=== PATIENT | male | born 1965 | race Caucasian/White ===

== ENCOUNTER 2017-05-11 17:19 | Emergency (ER) | payer BC, MEDICAID ==
--- NOTE | 2017-05-11 19:20 | EDM.PDOC ---
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: Other Medication(s) (glucose syrup, D50 and IV fluids via EMS) - Related Data Allergies Allergy/AdvReac Type Severity Reaction Status Date / Time No Known Allergies Allergy Verified 05/11/17 17:22 Home Meds: Home Meds Aspirin [Adult Low Dose Aspirin EC] 81 mg PO DAILY 10/05/16 [History] Insulin Aspart [NovoLOG] 2 units SUBCUT ASDIRECTED 10/05/16 [History] Insulin Glarg,Human.Rec.Analog [Lantus] 30 units SUBCUT ASDIRECTED 10/05/16 [ History] atorvaSTATin [Lipitor] 20 mg PO BEDTIME 10/05/16 [History] Past Medical History Musculoskeletal History: Reports: Back Pain, Chronic Endocrine/Metabolic History: Reports: Diabetes, Type I Other Endocrine/Metabolic History: 25 year hx with insulin use Social & Family History - Family History Family Medical History: Noncontributory - Tobacco Use Smoking Status *Q: Never Smoker Second Hand Smoke Exposure: No - Caffeine Use Caffeine Use: Reports: Coffee Caffeine Use Comment: caily - Recreational Drug Use Recreational Drug Use: No - Living Situation & Occupation Living situation: Reports: , with Family Occupation: Employed ED ROS GENERAL - Review of Systems Review Of Systems: See Below Constitutional: Reports: No Symptoms, Weight Gain Respiratory: Reports: No Symptoms Cardiovascular: Reports: No Symptoms Endocrine: Reports: No Symptoms GI/Abdominal: Reports: No Symptoms : Reports: No Symptoms Musculoskeletal: Reports: No Symptoms Skin: Reports: No Symptoms Neurological: Reports: No Symptoms Psychiatric: Reports: No Symptoms Hematologic/Lymphatic: Reports: No Symptoms Immunologic: Reports: No Symptoms ED EXAM GENERAL NO PERIP PULSE - Physical Exam Exam: See Below Exam Limited By: No Limitations General Appearance: Alert, WD/WN, No Apparent Distress Eye Exam: Bilateral Eye: Normal Inspection Ears: Normal External Exam, Hearing Grossly Normal Nose: Normal Inspection, Normal Mucosa, No Blood Throat/Mouth: Normal Inspection, Normal Lips, Normal Teeth, Normal Gums, Normal Oropharynx, Normal Voice, No Airway Compromise Head: Atraumatic, Normocephalic Neck: Normal Inspection, Supple, Non-Tender, Full Range of Motion Respiratory/Chest: No Respiratory Distress, Lungs Clear, Normal Breath Sounds, No Accessory Muscle Use, Chest Non-Tender Cardiovascular: Normal Peripheral Pulses, Regular Rate, Rhythm, No Edema, No Murmur GI/Abdominal: Normal Bowel Sounds, Soft, Non-Tender (Male) Exam: Deferred Rectal (Males) Exam: Deferred Back Exam: Normal Inspection, Full Range of Motion, NT Extremities: Normal Inspection, Normal Range of Motion, Non-Tender, No Pedal Edema, Normal Capillary Refill Neurological: Alert, Oriented, CN II-XII Intact, Normal Cognition, No Motor/ Sensory Deficits Psychiatric: Normal Affect, Normal Mood Skin Exam: Warm, Dry, Intact, Normal Color, No Rash Lymphatic: No Adenopathy Course - Vital Signs Last Recorded V/S: Last Vital Signs Temp 35.9 C 05/11/17 17:24 Pulse 68 05/11/17 19:56 Resp 15 05/11/17 19:56 BP 131/68 05/11/17 19:56 Pulse Ox 95 05/11/17 19:56 - Orders/Labs/Meds Labs: Laboratory Tests 05/11/17 05/11/17 Range/Units 19:21 19:21 WBC 17.7 H (4.5-11.0) K/uL RBC 4.99 (4.30-5.90) M/uL Hgb 14.6 (12.0-15.0) g/dL Hct 43.3 (40.0-54.0) % MCV 87 (80-98) fL MCH 29 (27-31) pg MCHC 34 (32-36) % Plt Count 237 (150-400) K/uL Neut % (Auto) 93 H (36-66) % Lymph % (Auto) 5 L (24-44) % [place] % (Auto) 3 (2-6) % Eos % (Auto) 0 L (2-4) % Baso % (Auto) 0 (0-1) % Sodium 139 L (140-148) mmol/L Potassium 4.3 (3.6-5.2) mmol/L Chloride 105 (100-108) mmol/L Carbon Dioxide 30 (21-32) mmol/L Anion Gap 8.3 (5.0-14.0) mmol/L BUN 17 (7-18) mg/dL Creatinine 0.9 (0.8-1.3) mg/dL Est Cr Clr Drug Dosing 105.38 mL/min Estimated GFR (MDRD) > 60 (>60) Glucose 276 H (74-106) mg/dL Calcium 8.2 L (8.5-10.1) mg/dL Total Bilirubin 0.3 (0.2-1.0) mg/dL AST 18 (15-37) U/L ALT 31 (12-78) U/L Alkaline Phosphatase 87 (46-116) U/L Total Protein 6.5 (6.4-8.2) g/dL Albumin 3.6 (3.4-5.0) g/dL Globulin 2.9 (2.3-3.5) g/dL Albumin/Globulin Ratio 1.2 (1.2-2.2) - Re-Assessments/Exams Free Text/Narrative Re-Assessment/Exam: 05/11/17 20:15 Mr. Land received one liter of fluid and D50 prior to arrival. since being in ER , blood glucose has been 233 and 246. no symptoms reported. labs are reviewed with and Mrs. Land. will discharge to home with Glucose tabs, liquid and Glucagon emergency Kit as directed. will follow up with [facility] on 05/23/2017. or sooner as indicated. Departure - Departure Time of Disposition: 20:17 Disposition: Home, Self-Care 01 Condition: Good Clinical Impression: Hypoglycemia - Discharge Information Referrals: PCP,None [Primary Care Provider] - Forms: ED Department Discharge Care Plan Goals: Hypoglycemic reaction at home -labs reviewed -scripts written for Glucose tab, gel and Glucagon Kit -follow up with [facility] on 05/23/2017 -follow with Primary Care sooner if has any concerns Return to Clinic or ER for any fever, chills, nausea, vomiting, diarrhea, rash or not improved. - Problem List & Annotations (1) Hypoglycemia SNOMED Code(s): 799917964 Code(s): E16.2 - HYPOGLYCEMIA, UNSPECIFIED Status: Acute Priority: Medium Current Visit: Yes - Problem List Review Problem List Initiated/Reviewed/Updated: Yes - Assessment/Plan Plan: Hypoglycemic reaction at home -labs reviewed -scripts written for Glucose tab, gel and Glucagon Kit -follow up with [facility] on 05/23/2017 -follow with Primary Care sooner if has any concerns Return to Clinic or ER for any fever, chills, nausea, vomiting, diarrhea, rash or not improved.
== END 2017-05-11 20:36 | disposition home or self-care (01) ==
LOC: JP.ED 17:19
DX: E10.649 Type 1 diabetes mellitus with hypoglycemia without coma (principal); Z79.4 Long term (current) use of insulin; Z79.82 Long term (current) use of aspirin
CPT/HCPCS: 36415; 80053; 85025; 99283; 99284

== ENCOUNTER 2019-02-12 17:54 | Emergency (ER) | payer BC, MEDICAID, OTHER ==
[2019-02-12] MEDS ORDERED: Sodium Chloride 0.9% 10 ML Syringe FLUSH PRN ×2 (18:17→19:18)
[2019-02-12] MEDS ORDERED: Ondansetron 4 MG/2 ML SDV IVPUSH ONE (18:18)
[2019-02-12] MEDS ORDERED: Alum Hydrox/Mag Hydrox/Simeth 15 ML, Lidocaine 2% 15 ML PO ONE ×2 (18:18)
--- NOTE | 2019-02-12 18:22 | EDM.PDOC ---
ED HPI GENERAL MEDICAL PROBLEM - General Chief Complaint: Abdominal Pain Stated Complaint: UPPER ABD PAIN Time Seen by Provider: 02/12/19 18:14 Source of Information: Reports: Patient, Family, RN Notes Reviewed History Limitations: Reports: No Limitations - History of Present Illness INITIAL COMMENTS - FREE TEXT/NARRATIVE: 53-year-old gentleman presents emergency department today complaint of abdominal pain, he states the pain started early this afternoon right after eating lunch has progressively gotten he does feel short of breath no chest pain he is diaphoretic no heart history Middle Abdomen Pain Score (Numeric/FACES): 8 - Related Data Allergies Allergy/AdvReac Type Severity Reaction Status Date / Time No Known Allergies Allergy Verified 02/12/19 18:05 Home Meds: Home Meds Aspirin [Adult Low Dose Aspirin EC] 81 mg PO DAILY 10/05/16 [History] Insulin Aspart [NovoLOG] 2 units SUBCUT ASDIRECTED 10/05/16 [History] Insulin Glarg,Human.Rec.Analog [Lantus] 25 units SUBCUT ASDIRECTED 10/05/16 [ History] Past Medical History HEENT History: Reports: Impaired Vision Musculoskeletal History: Reports: Back Pain, Chronic Endocrine/Metabolic History: Reports: Diabetes, Type I Other Endocrine/Metabolic History: 25 year hx with insulin use - Past Surgical History Head Surgeries/Procedures: Reports: None HEENT Surgical History: Reports: None Endocrine Surgical History: Reports: None Musculoskeletal Surgical History: Reports: None Dermatological Surgical History: Reports: None Social & Family History - Family History Family Medical History: Noncontributory - Tobacco Use Smoking Status *Q: Never Smoker Second Hand Smoke Exposure: No - Caffeine Use Caffeine Use: Reports: Coffee, Tea Caffeine Use Comment: caily - Recreational Drug Use Recreational Drug Use: No - Living Situation & Occupation Living situation: Reports: , with Family Occupation: Employed ED ROS GENERAL - Review of Systems Review Of Systems: See Below Constitutional: Reports: Diaphoresis HEENT: Reports: No Symptoms Respiratory: Reports: No Symptoms Cardiovascular: Reports: No Symptoms GI/Abdominal: Reports: Abdominal Pain, Flatus, Nausea. Denies: No Symptoms, Vomiting : Reports: No Symptoms Musculoskeletal: Reports: No Symptoms Skin: Reports: No Symptoms Neurological: Reports: No Symptoms ED EXAM, GI/ABD - Physical Exam Exam: See Below Exam Limited By: No Limitations General Appearance: Alert, WD/WN, No Apparent Distress Head: Atraumatic, Normocephalic Neck: Normal Inspection, Supple, Non-Tender, Full Range of Motion Respiratory/Chest: No Respiratory Distress, Lungs Clear, Normal Breath Sounds, No Accessory Muscle Use, Chest Non-Tender Cardiovascular: Regular Rate, Rhythm, No Murmur GI/Abdominal Exam: Normal Bowel Sounds, Soft, Non-Tender, No Distention Course - Vital Signs Last Recorded V/S: Last Vital Signs Temp 95.8 F 02/12/19 18:07 Pulse 72 02/12/19 20:24 Resp 16 02/12/19 18:07 BP 157/85 H 02/12/19 20:24 Pulse Ox 98 02/12/19 20:24 - Orders/Labs/Meds Orders: Active Orders 24 hr Category Date Time Status Cardiac Monitoring [RC] .As Directed Care 02/12/19 18:17 Active EKG Documentation Completion [RC] ASDIRECTED Care 02/12/19 18:18 Active Peripheral IV Care [RC] . DIRECTED Care 02/12/19 18:18 Active Iopamidol [Isovue-300 (61%)] Med 02/12/19 19:30 Active 142 ml IV . DIRECTED Lactated Ringers [Ringers, Lactated] 1,000 ml Med 02/12/19 18:30 Active IV ASDIRECTED Sodium Chloride 0.9% [Normal Saline] 80 ml Med 02/12/19 19:30 Active IV ASDIRECTED Sodium Chloride 0.9% [Saline Flush] Med 02/12/19 18:17 Active 10 ml FLUSH ASDIRECTED PRN Sodium Chloride 0.9% [Saline Flush] Med 02/12/19 19:18 Active 10 ml FLUSH ASDIRECTED PRN fentaNYL [Sublimaze] Med 02/12/19 21:40 Once 100 mcg IVPUSH ONETIME ONE Peripheral IV Insertion Adult [OM.PC] Stat Oth 02/12/19 18:17 Ordered EKG 12 Lead [EK] Stat Ther 02/12/19 18:18 Ordered Medication Orders Fentanyl (Sublimaze) 100 mcg IVPUSH ONETIME ONE Stop: 02/12/19 21:41 Lactated Ringer's (Ringers, Lactated) 1,000 mls @ 999 mls/hr IV ASDIRECTED [facility] Last Admin: 02/12/19 18:56 Dose: 999 mls/hr Sodium Chloride (Normal Saline) 80 mls @ 3 mls/sec IV ASDIRECTED NATA Last Admin: 02/12/19 19:35 Dose: 3 mls/sec Iopamidol (Isovue-300 (61%)) 142 ml IV . DIRECTED NATA Last Admin: 02/12/19 19:37 Dose: 142 ml Sodium Chloride (Saline Flush) 10 ml FLUSH ASDIRECTED PRN PRN Reason: Keep Vein Open Last Admin: 02/12/19 18:57 Dose: 10 ml Sodium Chloride (Saline Flush) 10 ml FLUSH ASDIRECTED PRN PRN Reason: Keep Vein Open Last Admin: 02/12/19 19:35 Dose: 10 ml Labs: Laboratory Tests 02/12/19 02/12/19 02/12/19 Range/Units 18:24 18:24 18:24 WBC 14.5 H (4.5-11.0) K/uL RBC 5.40 (4.30-5.90) M/uL Hgb 15.6 H (12.0-15.0) g/dL Hct 46.5 (40.0-54.0) % MCV 86 (80-98) fL MCH 29 (27-31) pg MCHC 34 (32-36) % Plt Count 255 (150-400) K/uL Neut % (Auto) 88 H (36-66) % Lymph % (Auto) 8 L (24-44) % [place] % (Auto) 4 (2-6) % Eos % (Auto) 0 L (2-4) % Baso % (Auto) 0 (0-1) % Sodium 142 (140-148) mmol/L Potassium 4.3 (3.6-5.2) mmol/L Chloride 105 (100-108) mmol/L Carbon Dioxide 28 (21-32) mmol/L Anion Gap 9.2 (5.0-14.0) mmol/L BUN 17 (7-18) mg/dL Creatinine 1.0 (0.8-1.3) mg/dL Est Cr Clr Drug Dosing 103.68 mL/min Estimated GFR (MDRD) > 60 (>60) Glucose 249 H (74-106) mg/dL Lactic Acid 2.0 (0.4-2.0) mmol/L Calcium 9.0 (8.5-10.1) mg/dL Total Bilirubin 0.4 (0.2-1.0) mg/dL AST 10 L (15-37) U/L ALT 33 (12-78) U/L Alkaline Phosphatase 92 (46-116) U/L Troponin I < 0.017 (0.000-0.056) ng/mL Total Protein 7.2 (6.4-8.2) g/dL Albumin 3.8 (3.4-5.0) g/dL Globulin 3.4 (2.3-3.5) g/dL Albumin/Globulin Ratio 1.1 L (1.2-2.2) Lipase 82 (73-393) U/L Urine Color Urine Appearance Urine pH (4.5-8.0) Ur Specific [place] (1.008-1.030) Urine Protein (NEGATIVE) mg/dL Urine Glucose (UA) (NEGATIVE) mg/dL Urine Ketones (NEGATIVE) mg/dL Urine Occult Blood (NEGATIVE) Urine Nitrite (NEGAITVE) Urine Bilirubin (NEGATIVE) Urine Urobilinogen (NORMAL) mg/dL Ur Leukocyte Esterase (NEGATIVE) Urine RBC (0-5) Urine WBC (0-5) Ur Epithelial Cells Amorphous Sediment Urine Bacteria Urine Mucus 02/12/19 Range/Units 19:44 WBC (4.5-11.0) K/uL RBC (4.30-5.90) M/uL Hgb (12.0-15.0) g/dL Hct (40.0-54.0) % MCV (80-98) fL MCH (27-31) pg MCHC (32-36) % Plt Count (150-400) K/uL Neut % (Auto) (36-66) % Lymph % (Auto) (24-44) % [place] % (Auto) (2-6) % Eos % (Auto) (2-4) % Baso % (Auto) (0-1) % Sodium (140-148) mmol/L Potassium (3.6-5.2) mmol/L Chloride (100-108) mmol/L Carbon Dioxide (21-32) mmol/L Anion Gap (5.0-14.0) mmol/L BUN (7-18) mg/dL Creatinine (0.8-1.3) mg/dL Est Cr Clr Drug Dosing mL/min Estimated GFR (MDRD) (>60) Glucose (74-106) mg/dL Lactic Acid (0.4-2.0) mmol/L Calcium (8.5-10.1) mg/dL Total Bilirubin (0.2-1.0) mg/dL AST (15-37) U/L ALT (12-78) U/L Alkaline Phosphatase (46-116) U/L Troponin I (0.000-0.056) ng/mL Total Protein (6.4-8.2) g/dL Albumin (3.4-5.0) g/dL Globulin (2.3-3.5) g/dL Albumin/Globulin Ratio (1.2-2.2) Lipase (73-393) U/L Urine Color Yellow Urine Appearance Clear Urine pH 8.0 (4.5-8.0) Ur Specific [place] 1.010 (1.008-1.030) Urine Protein Trace (NEGATIVE) mg/dL Urine Glucose (UA) >=1000 H (NEGATIVE) mg/dL Urine Ketones 50 H (NEGATIVE) mg/dL Urine Occult Blood Negative (NEGATIVE) Urine Nitrite Negative (NEGAITVE) Urine Bilirubin Negative (NEGATIVE) Urine Urobilinogen Normal (NORMAL) mg/dL Ur Leukocyte Esterase Negative (NEGATIVE) Urine RBC 0-5 (0-5) Urine WBC 0-5 (0-5) Ur Epithelial Cells Rare Amorphous Sediment Rare Urine Bacteria Not seen Urine Mucus Rare Meds: Medications Generic Name Dose Route Start Last Admin Trade Name Freq PRN Reason Stop Dose Admin Fentanyl 100 mcg 02/12/19 21:40 Sublimaze IVPUSH 02/12/19 21:41 ONETIME ONE Lactated Ringer's 1,000 mls @ 999 mls/hr 02/12/19 18:30 02/12/19 18:56 Ringers, Lactated IV 999 mls/hr ASDIRECTED NATA Administration Sodium Chloride 80 mls @ 3 mls/sec 02/12/19 19:30 02/12/19 19:35 Normal Saline IV 3 mls/sec ASDIRECTED NATA Administration Iopamidol 142 ml 02/12/19 19:30 02/12/19 19:37 Isovue-300 (61%) IV 142 ml . DIRECTED NATA Administration Sodium Chloride 10 ml 02/12/19 18:17 02/12/19 18:57 Saline Flush FLUSH 10 ml ASDIRECTED PRN Administration Keep Vein Open Sodium Chloride 10 ml 02/12/19 19:18 02/12/19 19:35 Saline Flush FLUSH 10 ml ASDIRECTED PRN Administration Keep Vein Open Discontinued Medications Generic Name Dose Route Start Last Admin Trade Name Freq PRN Reason Stop Dose Admin Al Hydroxide/Mg Hydroxide 15 0 ml 02/12/19 18:18 02/12/19 18:49 ml/ Lidocaine HCl 15 ml PO 02/12/19 18:19 15 ml ONETIME ONE Administration Fentanyl 50 mcg 02/12/19 19:13 02/12/19 19:20 Sublimaze IVPUSH 02/12/19 19:14 50 mcg ONETIME ONE Administration Ondansetron HCl 4 mg 02/12/19 18:18 02/12/19 18:57 Zofran IVPUSH 02/12/19 18:19 4 mg ONETIME ONE Administration Departure - Departure Time of Disposition: 21:45 Disposition: Home, Self-Care 01 Condition: Fair Clinical Impression: Abdominal pain Qualifiers: Abdominal location: epigastric Qualified Code(s): R10.13 - Epigastric pain - Discharge Information Referrals: Terence Montana ELECTRICAL REPAIRER [Primary Care Provider] - Forms: ED Department Discharge Additional Instructions: Use the hydrocodone as needed for pain control, use Zofran as needed for nausea and vomiting symptoms, the outpatient department will call you for an appointment time plan for HIDA scan on Saturday the clinical call you for an appointment time with Dr. May from Gen. surgery for appointment on Saturday, call or return to the emergency department worsening of symptoms - My Orders Last 24 Hours: My Active Orders 02/12/19 18:17 Cardiac Monitoring [RC] .As Directed Sodium Chloride 0.9% [Saline Flush] 10 ml FLUSH ASDIRECTED PRN Peripheral IV Insertion Adult [OM.PC] Stat 02/12/19 18:18 EKG Documentation Completion [RC] ASDIRECTED Peripheral IV Care [RC] . DIRECTED EKG 12 Lead [EK] Stat 02/12/19 18:30 Lactated Ringers [Ringers, Lactated] 1,000 ml IV ASDIRECTED 02/12/19 19:18 Sodium Chloride 0.9% [Saline Flush] 10 ml FLUSH ASDIRECTED PRN 02/12/19 19:30 Iopamidol [Isovue-300 (61%)] 142 ml IV . DIRECTED Sodium Chloride 0.9% [Normal Saline] 80 ml IV ASDIRECTED 02/12/19 21:40 fentaNYL [Sublimaze] 100 mcg IVPUSH ONETIME ONE - Assessment/Plan Last 24 Hours: My Active Orders 02/12/19 18:17 Cardiac Monitoring [RC] .As Directed Sodium Chloride 0.9% [Saline Flush] 10 ml FLUSH ASDIRECTED PRN Peripheral IV Insertion Adult [OM.PC] Stat 02/12/19 18:18 EKG Documentation Completion [RC] ASDIRECTED Peripheral IV Care [RC] . DIRECTED EKG 12 Lead [EK] Stat 02/12/19 18:30 Lactated Ringers [Ringers, Lactated] 1,000 ml IV ASDIRECTED 02/12/19 19:18 Sodium Chloride 0.9% [Saline Flush] 10 ml FLUSH ASDIRECTED PRN 02/12/19 19:30 Iopamidol [Isovue-300 (61%)] 142 ml IV . DIRECTED Sodium Chloride 0.9% [Normal Saline] 80 ml IV ASDIRECTED 02/12/19 21:40 fentaNYL [Sublimaze] 100 mcg IVPUSH ONETIME ONE Plan: Assessment Acuity = acute Site and laterality = epigastric abdominal pain Etiology = unknown suspicious for gallbladder dysfunction Manifestations = nausea Location of injury = Home Lab values = WBC elevated 14.5 consistent leukocytosis, CMP unremarkable troponin is negative, urinalysis negative CT scan and ultrasound showed no acute process other than multiple gallstones consistent with cholelithiasis with no evidence of cholecystitis Plan Called discussed case with Dr. May general surgery at 20:40 recommended HIDA scan and follow-up with him in clinic on Saturday prescription written for hydrocodone 5/325 one tab by mouth 4 hours when necessary total #30 as well as Zofran 4 mg ODT 1 tab by mouth 3 times a day when necessary total #10 This note was dictated using Ping4 voice recognition software please call with any questions on syntax or grammar.
[2019-02-12] MEDS ORDERED: Lactated Ringers 1,000 ML IV SCH (18:30)
[2019-02-12] MEDS ORDERED: fentaNYL 100 MCG/2 ML SDV IVPUSH ONE ×2 (19:13→21:40)
[2019-02-12] MEDS ORDERED: Iopamidol 612 MG/ML 150 ML Bottle IV SCH (19:30)
[2019-02-12] MEDS ORDERED: Sodium Chloride 0.9% 80 ML IV SCH (19:30)
--- NOTE | 2019-02-12 20:10 | CRLCT ---
INDICATION: Upper abdominal pain TECHNIQUE: CT Abdomen and pelvis with i.v. contrast. Coronal and sagittal reformats were obtained. CONTRAST: 142 mL Isovue 300 COMPARISON: None FINDINGS: Lower chest: There is a 12 mm nodule in the anterior left lower lobe. Liver: Unremarkable. Spleen: Unremarkable. Pancreas: Unremarkable. Gallbladder: Several punctate gallstones are seen. Kidney: Malrotation of both kidneys present which is a normal variant. The kidney parenchyma is normal in enhancement. Adrenal: Unremarkable. Bowel: Prominence of all bowel loops are seen in the left upper quadrant with no transition point, likely due to peristalsis. The appendix is normal in appearance and size. Vascular: Unremarkable. Lymph: Unremarkable. Peritoneum: Unremarkable. No pneumoperitoneum is seen. No significant ascites is noted. Pelvis: Unremarkable. Soft tissue: Unremarkable. Bone: Unremarkable for age. IMPRESSION: 1. There is a 12 mm nodule in the anterior left lower lobe. Further evaluation with follow-up chest CT in 3 months, biopsy or PET scan is recommended to exclude a primary pulmonary neoplasm in accordance with the 2017 Revised Fleischner Society Recommendations. 2. No identified etiology for the abdominal pain seen. A copy of this report was faxed to Officer at approximately 8:09 PM. Dictated by Erik Gotti MD @ 02/12/2019 8:09:31 PM Please note that all CT scans at this facility use dose modulation, iterative reconstruction, and/or weight-based dosing when appropriate to reduce radiation dose to as low as reasonably achievable. Dictated by: Erik Gotti MD @ 02/12/2019 20:09:40 (Electronically Signed)
--- NOTE | 2019-02-12 21:16 | CRLUS ---
INDICATION: Epigastric pain, cholelithiasis TECHNIQUE: Ultrasound abdomen limited. Sonographic images of the right upper quadrant were obtained using jaquez-scale and color Doppler images. COMPARISON: CT from same date FINDINGS: Liver: Normal in size and echotexture. No masses. No intrahepatic biliary dilatation. Gallbladder: Multiple small mobile stones. Normal wall thickness. No pericholecystic fluid. Common bile duct: 6 mm. Pancreas: Not well seen. Right kidney: 10.8 x 5.8 x 6.1 cm. Normal echotexture and cortex. No masses, stones, or hydronephrosis. Vasculature: Proximal abdominal aorta and IVC are normal. IMPRESSION: Cholelithiasis without evidence for cholecystitis. The pancreas was not well seen on this exam. Dictated by Kandice Mansfield MD @ Feb 12 2019 9:15PM Signed by Dr. Kandice Mansfield @ Feb 12 2019 9:15PM
== END 2019-02-12 21:59 | disposition home or self-care (01) ==
LOC: JP.ED 17:54
DX: R10.13 Epigastric pain (principal); Z79.82 Long term (current) use of aspirin; Z79.4 Long term (current) use of insulin
CPT/HCPCS: 36415; 74177; 76705; 80053; 81001; 83605; 83690; 84484; 85025; 93005; 96361; 96374; 96375; 99284; A9270; J2405; J3010; J7030; J7120

== ENCOUNTER → 2025-07-02 | Day surgery (SDC) | payer BC, OTHER ==
[~2025-07-02] MED LIST: Midazolam 1 MG/ML 2 ML SDV ONE; Propofol 200 MG/20 ML SDV ONE; fentaNYL 50 MCG/ML SDV ONE
[2025-07-02] MEDS: Lactated Ringers 1,000 ML IV SCH (08:06)
== END ==
LOC: JP.SDS 07:28
PROVIDERS: ATTEND Surgery
DX: Z12.11 Encounter for screening for malignant neoplasm of colon (principal); D12.5 Benign neoplasm of sigmoid colon; K63.5 Polyp of colon; E10.9 Type 1 diabetes mellitus without complications; Z79.4 Long term (current) use of insulin; Z79.82 Long term (current) use of aspirin; Z79.899 Other long term (current) drug therapy
CPT/HCPCS: 00811-QZ; 82947; J2250; J2704; J3010; J7120